=== PATIENT | female | born 1955 | race Caucasian/White ===

== ENCOUNTER 2017-05-23 09:35 | Outpatient (CLI) | payer BC | END 2017-05-23 09:36 | disposition home or self-care (01) | LOC: BICMAMMO 09:35 | PROVIDERS: ATTEND Nurse Practitioner Family | DX: Z13.820 Encounter for screening for osteoporosis (principal); M85.859 Other specified disorders of bone density and structure, unspecified thigh | CPT/HCPCS: 77080 ==

== ENCOUNTER 2020-10-07 10:30 | Inpatient (IN) | payer MEDICARE ==
[2020-11-15 12:07] VITALS: BMI 32.9
[2020-11-16] MEDS ORDERED: CEFAZOLIN 2 GM in Premix Bag 1 BAG IVPB SCH (06:15)
[2020-11-16] MEDS ORDERED: Vancomycin HCl 1.5 GM in Sodium Chloride 0.9% 250 ML 300 ML IVPB SCH ×2 (06:15→19:00)
[2020-11-16] MEDS ORDERED: EPINEPHrine 1 MG/ML AMP ONE (06:24)
[2020-11-16] MEDS ORDERED: Bupivacaine 0.25% HCL 30 ML VIAL ONE (06:24)
[2020-11-16] MEDS ORDERED: Tranexamic Acid 1,000 MG in Sodium Chloride 0.9% 100 ML IVPB SCH (06:30)
[2020-11-16] MEDS ORDERED: Sodium Chloride 0.9% 100 ML ONE (06:41)
[2020-11-16] MEDS ORDERED: Tranexamic Acid 1,000 MG/10 ML VIAL ONE (06:41)
[2020-11-16] MEDS ORDERED: Fentanyl 100 MCG/2 ML VIAL ONE ×4 (06:49→10:09)
[2020-11-16] MEDS ORDERED: Midazolam HCl 2 mg/2 ml Vial ONE (06:49)
[2020-11-16] MEDS ORDERED: PROPOFOL 200 MG/20 ML VIAL ONE (07:26)
[2020-11-16] MEDS ORDERED: Ondansetron PF 4 MG/2 ML Vial ONE (07:26)
[2020-11-16] MEDS ORDERED: Ketorolac Tromethamine 30 MG/ML VIAL ONE ×2 (07:26→13:47)
[2020-11-16] MEDS ORDERED: Lidocaine 1% PF 5 ML VIAL ONE (07:26)
[2020-11-16] MEDS ORDERED: Bupivacaine HCl 0.5%/Epinephrine 1:200,000/PF 30 ml Vial ONE (07:26)
[2020-11-16] MEDS ORDERED: Ropivacaine 2% HCl/PF (20 MG/10 ML VIAL) ONE (07:26)
[2020-11-16] MEDS ORDERED: Promethazine HCl 25 MG/ML VIAL IM PRN ×3 (08:45→10:43)
[2020-11-16] MEDS ORDERED: Ropivacaine 0.2% 550 ML 550 ML NERVE BLCK SCH (08:45)
[2020-11-16] MEDS ORDERED: Fentanyl 100 MCG/2 ML VIAL IV PRN (08:45)
[2020-11-16] MEDS ORDERED: Zolpidem Tartrate 5 MG TAB PO PRN ×2 (08:45→10:24)
[2020-11-16] MEDS ORDERED: Ondansetron PF 4 MG/2 ML Vial IVP PRN ×2 (08:45→10:24)
[2020-11-16] MEDS ORDERED: traMADol HCl 50 MG TAB PO PRN ×2 (08:45)
[2020-11-16] MEDS ORDERED: HYDROcodone/Acetaminophen 10/325 mg Tablet PO PRN ×3 (08:45→10:24)
[2020-11-16] MEDS ORDERED: Acetaminophen 325 MG TAB PO PRN (10:24)
[2020-11-16] MEDS ORDERED: Fentanyl 100 MCG/2 ML VIAL SLOW IVP PRN ×2 (10:24)
[2020-11-16] MEDS ORDERED: diphenhydrAMINE 25 MG CAP PO PRN (10:24)
[2020-11-16] MEDS ORDERED: HYDROmorphone 0.5 MG/0.5 ML SYRINGE ONE ×3 (10:38→12:47)
[2020-11-16] MEDS ORDERED: HYDROmorphone 2 MG/ML VIAL SLOW IVP PRN (10:43)
[2020-11-16] MEDS ORDERED: Ondansetron HCl/PF 4 MG/2 ML Vial IVP PRN (10:43)
[2020-11-16] MEDS ORDERED: Promethazine HCl 25 MG/ML VIAL IVPB PRN (10:43)
[2020-11-16] MEDS: Sodium Chloride 0.9% 1,000 ML IV SCH ×2 (13:42→23:32)
[2020-11-16] MEDS ORDERED: Ketorolac Tromethamine 30 MG/ML VIAL IVP SCH (14:00)
[2020-11-16] MEDS: Ketorolac Tromethamine 30 MG/ML VIAL IVP SCH ×3 (14:13→23:17)
[2020-11-16] MEDS: CEFAZOLIN 2 GM, Admixture Fee 1 EACH in Sodium Chloride 0.9% 100 ML IVPB SCH ×2 (17:23→23:17)
[2020-11-16] MEDS: HYDROcodone/Acetaminophen 10/325 mg Tablet PO PRN ×2 (17:54→23:18)
[2020-11-16] MEDS: Aspirin 81 mg Enteric Coated Tablet PO SCH (20:53)
[2020-11-17 05:30] LABS: Hemoglobin 9.7 g/dL (12.0-16.0); Mean Corpuscular Hemoglobin 31.3 pg (27.0-31.0); Mean Corpuscular Volume 97.9 fL (78.0-98.0); Mean Platelet Volume 7.8 fL (7.4-10.4); Platelet Count 161 thou/uL (130-400); RBC Distribution Width 11.9 % (11.5-14.5); Red Blood Cell (RBC) Count 3.11 mill/uL (4.20-5.40)
[2020-11-17] MEDS: Ketorolac Tromethamine 30 MG/ML VIAL IVP SCH ×4 (05:49→22:28)
[2020-11-17] MEDS: Sodium Chloride 0.9% 1,000 ML IV SCH ×2 (07:36→13:55)
[2020-11-17] MEDS: Multivitamin W/ Minerals 1 TAB PO SCH (08:09)
[2020-11-17] MEDS: Senokot S 8.6-50 MG TAB PO SCH ×2 (08:09→20:27)
[2020-11-17] MEDS: Aspirin 81 mg Enteric Coated Tablet PO SCH ×2 (08:10→20:26)
[2020-11-17] MEDS: HYDROcodone/Acetaminophen 10/325 mg Tablet PO PRN ×3 (08:10→22:29)
[2020-11-17] MEDS: Ferrous Gluconate 324 MG TAB PO SCH ×2 (08:11→20:26)
[2020-11-18] MEDS: Sodium Chloride 0.9% 1,000 ML IV SCH (02:48)
[2020-11-18] MEDS: Ketorolac Tromethamine 30 MG/ML VIAL IVP SCH (04:58)
[2020-11-18 06:01] LABS: Hemoglobin 10.1 g/dL (12.0-16.0); Mean Corpuscular HGB CONC 33.7 g/dL (32.0-36.0); Mean Corpuscular Hemoglobin 32.8 pg (27.0-31.0); Mean Corpuscular Volume 97.1 fL (78.0-98.0); Mean Platelet Volume 7.8 fL (7.4-10.4); Platelet Count 171 thou/uL (130-400); RBC Distribution Width 11.9 % (11.5-14.5); White Blood Cell (WBC) Count 7.1 thou/uL (4.8-10.8)
[2020-11-18 08:46] VITALS: BP 102/64; TEMP 98.2
[2020-11-18] MEDS: HYDROcodone/Acetaminophen 10/325 mg Tablet PO PRN (09:10)
[2020-11-18] MEDS: Senokot S 8.6-50 MG TAB PO SCH (09:10)
[2020-11-18] MEDS: Ferrous Gluconate 324 MG TAB PO SCH (09:11)
[2020-11-18] MEDS: Aspirin 81 mg Enteric Coated Tablet PO SCH (09:11)
[2020-11-18] MEDS: Multivitamin W/ Minerals 1 TAB PO SCH (09:11)
== END 2020-11-18 11:26 | disposition home health service (06) | DRG 470 ==
LOC: EDSTATUS 10-12 10:30 → SURG A 11-16 05:33
PROVIDERS: ADMIT Orthopaedic Surgery; ATTEND Orthopaedic Surgery
PROC: 0SRC0J9 Replacement of Right Knee Joint with Synthetic Substitute, Cemented, Open Approach (ICD-10-PCS; principal; 2020-11-16)
DX: M17.11 Unilateral primary osteoarthritis, right knee (principal); I25.10 Atherosclerotic heart disease of native coronary artery without angina pectoris; E78.5 Hyperlipidemia, unspecified; I10 Essential (primary) hypertension; J45.909 Unspecified asthma, uncomplicated; Z88.1 Allergy status to other antibiotic agents; Z86.16 Personal history of COVID-19; Z88.8 Allergy status to other drugs, medicaments and biological substances; Z79.899 Other long term (current) drug therapy
CPT/HCPCS: 36415; 85027; A4306; C1713; C1776; J0171; J0690; J1170; J1885; J2250; J2405; J2704; J2795; J3010; J3370; J3490; J7050; S0020

== ENCOUNTER 2020-11-11 10:27 | Outpatient (CLI) | payer MEDICARE ==
[2020-11-11 11:38] LABS: #Eosinphils 0.1 10x3/uL (0.0-0.5); #Monocytes 0.4 10x3/uL (0.0-1.1); #Neutrophils 2.3 10x3/uL (1.5-8.4); %Eosinophils 2.9 % (0.0-6.0); %Neutrophils 54.9 % (40.0-75.0); Hemoglobin 12.1 g/dL (12.0-15.5); Mean Corpuscular HGB CONC 32.4 g/dL (32.0-36.0); Mean Corpuscular Hemoglobin 30.9 pg (27.0-33.0); Mean Corpuscular Volume 95.4 fl (81.6-98.3); Mean Platelet Volume 10.1 fl (7.4-10.4); Platelet Count 210 10x3/uL (150-450); RBC Distribution Width 13.3 % (11.5-14.5); Red Blood Cell (RBC) Count 3.92 10x6/uL (3.90-5.03); White Blood Cell (WBC) Count 4.1 10x3/uL (3.5-10.5)
[2020-11-11 11:49] LABS: Prothrombin Time 10.9 sec (9.5-12.1)
[2020-11-11 11:59] LABS: Anion Gap 12 mmol/L (10-20); BUN (Urea Nitrogen) 14 mg/dL (9.8-20.1); Calc. Creatinine Clearance 0 mL/min (70-130); Carbon Dioxide 26 mmol/L (23-31); Chloride 105 mmol/L (98-107); Glucose 88 mg/dL (80-115); Potassium 3.8 mmol/L (3.5-5.1); Sodium 139 mmol/L (136-145)
== END 2020-11-11 10:28 | disposition home or self-care (01) ==
LOC: LABBT 10:27
PROVIDERS: ATTEND Orthopaedic Surgery
DX: Z01.818 Encounter for other preprocedural examination (principal); M17.11 Unilateral primary osteoarthritis, right knee
CPT/HCPCS: 80048; 85025; 85610; 87081; 93005; 93010

== ENCOUNTER 2021-06-23 10:53 | Outpatient (CLI) | payer MEDICARE ==
[2021-06-23 12:53] LABS: #Basophils 0.1 10x3/uL (0.0-0.2); #Eosinphils 0.1 10x3/uL (0.0-0.5); #Monocytes 0.5 10x3/uL (0.0-1.1); #Neutrophils 2.9 10x3/uL (1.5-8.4); %Eosinophils 2.1 % (0.0-6.0); %Lymphocytes 31.7 % (18.0-47.0); %Monocytes 8.8 % (0.0-10.0); %Neutrophils 56.2 % (40.0-75.0); Mean Corpuscular HGB CONC 33.8 g/dL (32.0-36.0); Mean Corpuscular Hemoglobin 31.7 pg (27.0-33.0); Mean Corpuscular Volume 93.9 fl (81.6-98.3); Mean Platelet Volume 9.9 fl (7.4-10.4); Platelet Count 243 10x3/uL (150-450); RBC Distribution Width 13.4 % (11.5-14.5); White Blood Cell (WBC) Count 5.2 10x3/uL (3.5-10.5)
[2021-06-23 13:14] LABS: INR-International Normal Ratio 0.9; Prothrombin Time 10.3 sec (9.5-12.1)
[2021-06-23 13:19] LABS: Anion Gap 15 mmol/L (10-20); BUN (Urea Nitrogen) 15 mg/dL (9.8-20.1); Calc. Creatinine Clearance 0 mL/min (70-130); Calcium 9.6 mg/dL (7.8-10.44); Carbon Dioxide 28 mmol/L (23-31); Chloride 102 mmol/L (98-107); Glucose 81 mg/dL (80-115); Potassium 4.1 mmol/L (3.5-5.1); Sodium 141 mmol/L (136-145)
[2021-06-23 21:27] LABS: SARS-CoV-2 PCR by NAA Not Detected (NotDetected)
== END 2021-06-23 10:54 | disposition home or self-care (01) ==
LOC: LABBT 10:53
PROVIDERS: ATTEND Orthopaedic Surgery
DX: Z01.818 Encounter for other preprocedural examination (principal); M17.12 Unilateral primary osteoarthritis, left knee; Z20.822 Contact with and (suspected) exposure to COVID-19
CPT/HCPCS: 80048; 85025; 85610; 87081; 93005; U0003; U0005; 93010

== ENCOUNTER 2021-06-23 11:00 | Inpatient (IN) | payer MEDICARE ==
[2021-06-24 13:39] VITALS: BMI 32.9
[2021-06-28] MEDS ORDERED: Vancomycin (BATCH) 1.5 GRAM/300 ML BAG ONE (06:10)
[2021-06-28] MEDS ORDERED: Tranexamic Acid 1,000 MG/10 ML VIAL ONE ×2 (06:10→09:56)
[2021-06-28] MEDS ORDERED: Sodium Chloride 0.9% 100 ML ONE ×2 (06:10→06:52)
[2021-06-28] MEDS ORDERED: Midazolam HCl 2 mg/2 ml Vial ONE (06:49)
[2021-06-28] MEDS ORDERED: Fentanyl 100 MCG/2 ML VIAL ONE ×4 (06:49→10:31)
[2021-06-28] MEDS ORDERED: CEFAZOLIN 2 GM VIAL ONE (06:52)
[2021-06-28] MEDS ORDERED: Ondansetron PF 4 MG/2 ML Vial ONE (07:13)
[2021-06-28] MEDS ORDERED: Ketorolac Tromethamine 30 MG/ML VIAL ONE (07:13)
[2021-06-28] MEDS ORDERED: PROPOFOL 200 MG/20 ML VIAL ONE (07:13)
[2021-06-28] MEDS ORDERED: Ropivacaine 0.5% HCl/PF (150 MG/30 ML VIAL) ONE (07:13)
[2021-06-28] MEDS ORDERED: Lidocaine 1% PF 5 ML VIAL ONE (07:13)
[2021-06-28] MEDS ORDERED: fentaNYL Citrate/PF 100 MCG/2 ML SYRINGE ONE (07:58)
[2021-06-28] MEDS ORDERED: EPINEPHrine 1 MG/ML AMP ONE (08:11)
[2021-06-28] MEDS ORDERED: Bupivacaine PF 0.5% 30 ML VIAL ONE (08:11)
[2021-06-28] MEDS ORDERED: Fentanyl 100 MCG/2 ML VIAL IV PRN (08:33)
[2021-06-28] MEDS ORDERED: Ropivacaine 0.2% 550 ML 550 ML NERVE BLCK SCH (08:45)
[2021-06-28] MEDS ORDERED: Promethazine HCl 25 MG/ML VIAL IM PRN ×3 (08:45→10:43)
[2021-06-28] MEDS ORDERED: Ondansetron PF 4 MG/2 ML Vial IVP PRN ×2 (08:45→10:43)
[2021-06-28] MEDS ORDERED: traMADol HCl 50 MG TAB PO PRN ×2 (08:45)
[2021-06-28] MEDS ORDERED: Zolpidem Tartrate 5 MG TAB PO PRN ×2 (08:45→10:43)
[2021-06-28] MEDS ORDERED: Ondansetron HCl/PF 4 MG/2 ML Vial IVP PRN (09:13)
[2021-06-28] MEDS ORDERED: Morphine Sulfate 2 MG/ML SYRINGE SLOW IVP PRN (09:13)
[2021-06-28] MEDS ORDERED: Promethazine HCl 25 MG/ML VIAL IVPB PRN (09:13)
[2021-06-28] MEDS ORDERED: HYDROmorphone 2 MG/ML VIAL SLOW IVP PRN (09:13)
[2021-06-28] MEDS ORDERED: Meperidine HCl/PF 25 MG/ML VIAL SLOW IVP PRN (09:13)
[2021-06-28] MEDS ORDERED: HYDROmorphone 0.5 MG/0.5 ML SYRINGE ONE (10:15)
[2021-06-28] MEDS ORDERED: Acetaminophen 325 MG TAB PO PRN (10:43)
[2021-06-28] MEDS ORDERED: Ketorolac Tromethamine 30 MG/ML VIAL IVP PRN (10:43)
[2021-06-28] MEDS ORDERED: diphenhydrAMINE 25 MG CAP PO PRN (10:43)
[2021-06-28] MEDS ORDERED: Docusate 100 MG CAP PO PRN (11:18)
[2021-06-28] MEDS ORDERED: hydrOXYzine 10 MG TAB PO PRN (11:19)
[2021-06-28] MEDS: Ketorolac Tromethamine 30 MG/ML VIAL IVP SCH ×3 (11:53→23:03)
[2021-06-28] MEDS: Dextrose 5 %-0.45 % NaCl 1,000 ML IV SCH ×2 (11:53→20:43)
[2021-06-28] MEDS: HYDROcodone/Acetaminophen 10/325 mg Tablet PO PRN ×3 (12:11→20:41)
[2021-06-28] MEDS: CEFAZOLIN 2 GM in Sodium Chloride 0.9% 100 ML IVPB SCH ×2 (14:27→23:01)
[2021-06-28] MEDS ORDERED: Vancomycin 1.5 GRAM/300 ML BAG 1.5 GM in Premix Bag 1 BAG IVPB SCH (18:00)
[2021-06-28] MEDS: Ferrous Gluconate 324 MG TAB PO SCH (20:41)
[2021-06-28] MEDS: Aspirin 81 mg Enteric Coated Tablet PO SCH (20:41)
[2021-06-28] MEDS: Senokot S 8.6-50 MG TAB PO SCH (20:41)
[2021-06-28] MEDS ORDERED: Rosuvastatin 5 MG TAB PO SCH (21:00)
[2021-06-29] MEDS: HYDROcodone/Acetaminophen 10/325 mg Tablet PO PRN ×2 (02:25→08:54)
[2021-06-29 05:50] LABS: Hemoglobin 11.1 g/dL (12.0-16.0); Mean Corpuscular HGB CONC 32.1 g/dL (32.0-36.0); Mean Corpuscular Hemoglobin 32.2 pg (27.0-31.0); Mean Platelet Volume 7.3 fL (7.4-10.4); Platelet Count 187 thou/uL (130-400); Red Blood Cell (RBC) Count 3.45 mill/uL (4.20-5.40); White Blood Cell (WBC) Count 6.4 thou/uL (4.8-10.8)
[2021-06-29] MEDS: Ketorolac Tromethamine 30 MG/ML VIAL IVP SCH (06:34)
[2021-06-29] MEDS: Dextrose 5 %-0.45 % NaCl 1,000 ML IV SCH (06:35)
[2021-06-29] MEDS: Ferrous Gluconate 324 MG TAB PO SCH (08:54)
[2021-06-29] MEDS: Aspirin 81 mg Enteric Coated Tablet PO SCH (08:54)
[2021-06-29] MEDS: Senokot S 8.6-50 MG TAB PO SCH (08:54)
[2021-06-29] MEDS ORDERED: Multivitamin W/ Minerals 1 TAB PO SCH (09:00)
[2021-06-29] MEDS ORDERED: Vit A,C & E/Lutein/Minerals Tablet PO SCH (09:00)
[2021-06-29] MEDS ORDERED: Lisinopril/Hydrochlorothiazide 10 mg/12.5 mg Tablet PO SCH (09:00)
[2021-06-29 09:20] VITALS: BP 104/55; TEMP 97.7
== END 2021-06-29 11:40 | disposition home health service (06) | DRG 470 ==
LOC: SURG A 06-28 05:35 → EDSTATUS 06-28 11:00 → SURG B 06-28 11:14
PROVIDERS: ADMIT Orthopaedic Surgery; ATTEND Orthopaedic Surgery
PROC: 0SRD0J9 Replacement of Left Knee Joint with Synthetic Substitute, Cemented, Open Approach (ICD-10-PCS; principal; 2021-06-28)
DX: M17.12 Unilateral primary osteoarthritis, left knee (principal); Z20.822 Contact with and (suspected) exposure to COVID-19; Z23 Encounter for immunization; I10 Essential (primary) hypertension; E78.5 Hyperlipidemia, unspecified; Z98.890 Other specified postprocedural states; Z90.09 Acquired absence of other part of head and neck; Z79.82 Long term (current) use of aspirin; Z79.899 Other long term (current) drug therapy
CPT/HCPCS: 36415; 85027; A4306; C1713; C1776; J0171; J1170; J1885; J2250; J2405; J2550; J2704; J2795; J3010; J3370; J3490; J7042; S0020

== ENCOUNTER 2024-09-15 11:19 | Outpatient (CLI) | payer MEDICARE | END 2024-09-15 11:20 | disposition home or self-care (01) | LOC: ULT 11:19 | PROVIDERS: ATTEND Orthopaedic Surgery | DX: I83.893 Varicose veins of bilateral lower extremities with other complications (principal); E78.2 Mixed hyperlipidemia; R60.0 Localized edema | CPT/HCPCS: 93970 ==